=== PATIENT | male | born 1955 | race African-American/Black ===

== ENCOUNTER 2016-06-06 19:51 | Observation (INO) | payer OTHER ==
[~2016-06-06] VITALS: Ht 185.4 cm; Wt 103.4 kg
[2016-06-06] MEDS ORDERED: ASPIRIN 81 MG TAB.CHEW PO ONE (20:15)
[2016-06-06] MEDS ORDERED: MORPHINE SULFATE 2 MG/ML DISP.SYRIN. IV PRN ×2 (20:15→23:00)
[2016-06-06 20:36] LABS: BASO % 1 % (0-3); EOS % 1 % (0-3); HEMATOCRIT 41.2 % (39.0-53.0); HEMOGLOBIN 13.3 g/dL (13.0-17.5); LYMPH # 1.7 x10^3/uL (1.0-4.8); LYMPH % 22 % (24-48); MEAN CORPUSCULAR HEMOGLOBIN 30 pg (25-35); MEAN CORPUSCULAR HGB CONC 32 g/dL (31-37); MEAN CORPUSCULAR VOLUME 92 fL (79-100); MONO % 8 % (0-9); NEUT % 69 % (31-73); PLATELET COUNT 190 x10^3/uL (140-400); RED BLOOD COUNT 4.46 x10^6/uL (4.30-5.70); RED CELL DISTRIBUTION WIDTH 14.9 % (11.5-14.5); WHITE BLOOD COUNT 7.7 x10^3/uL (4.0-11.0)
[2016-06-06 20:48] LABS: CALCIUM 9.1 mg/dL (8.5-10.1); CREATININE 1.6 mg/dL (0.7-1.3); GFR 44.2; POTASSIUM 3.6 mmol/L (3.5-5.1)
[2016-06-06 20:54] LABS: ALBUMIN 3.6 g/dL (3.4-5.0); DIRECT BILIRUBIN 0.1 mg/dL (0.0-0.2); TOTAL BILIRUBIN 0.5 mg/dL (0.2-1.0); TOTAL PROTEIN 7.5 g/dL (6.4-8.2)
[2016-06-06] MEDS: NITROGLYCERIN SUBLINGUAL 0.4 MG BOTTLE OF 25. SL PRN ×3 (21:03→21:45)
--- NOTE | 2016-06-06 22:51 | PHYS DOC ---
Past Medical History Past Medical History: Cancer, Hypertension Additional Past Medical Histor: BLOOD CLOTS Past Surgical History: Cancer Surgery Additional Past Surgical Histo: CANCER OF KIDNEY, THYROID, EYE SURGERYS Alcohol Use: None Drug Use: None Adult General Chief Complaint Chief Complaint: CHEST PAIN HPI HPI 61-year-old male presenting the emergency department with chest tightness and left arm and neck pain. This started approximately 4 days ago. He denies nausea vomiting. He did have diaphoresis. He shortness of breath is also present which is worse with laying down. He denies unilateral leg swelling. He does have a history of DVT. He denies the pain being sudden. He denies hemoptysis. He is currently on warfarin. Onset 4 days Location lungs and heart Duration intermittent No alleviating factors. Review of Systems Review of Systems ROS negative for nausea vomiting abdominal pain fevers chills. pos for chest pain and shortness of breath. All other review of systems is negative unless otherwise noted in history of present illness. Current Medications Current Medications Current Medications Medications (Trade) Dose Ordered Sig/Viktoria Start Time Stop Time Status Last Admin Dose Admin Aspirin (Children'S Aspirin) 324 mg 1X ONCE 06/06/16 20:15 06/06/16 20:54 DC 06/06/16 21:02 324 MG Morphine Sulfate 2 mg PRN Q2HR PRN 06/06/16 23:00 06/07/16 22:59 Nitroglycerin (Nitrostat) 0.4 mg PRN Q5MIN PRN 06/06/16 23:00 06/07/16 22:59 Ondansetron HCl (Zofran) 4 mg PRN Q8HRS PRN 06/06/16 23:00 06/07/16 22:59 Allergies Allergies Allergies Coded Allergies Type Severity Reaction Last Updated Verified amitriptyline Allergy Intermediate 06/06/16 Yes gabapentin Allergy Intermediate 06/06/16 Yes hydrochlorothiazide Allergy Intermediate 06/06/16 Yes tramadol Allergy Intermediate 06/06/16 Yes Physical Exam Physical Exam Constitutional: Well developed, well nourished, no acute distress, non-toxic appearance. HENT: Normocephalic, atraumatic, bilateral external ears normal, oropharynx moist, no oral exudates, nose normal. Eyes: PERRLA, EOMI, conjunctiva normal, no discharge. [] Neck: Normal range of motion, no tenderness, supple, no stridor. Cardiovascular:Heart rate regular rhythm, no murmur [] Lungs & Thorax: Bilateral breath sounds clear to auscultation Abdomen: Bowel sounds normal, soft, no tenderness, no masses, no pulsatile masses. [] Skin: Warm, dry, no erythema, no rash. Back: No tenderness, no CVA tenderness. [] Extremities: No tenderness, no cyanosis, no clubbing, ROM intact, no edema. [] Neurologic: Alert and oriented X 3, normal motor function, normal sensory function, no focal deficits noted. Psychologic: Affect normal, judgement normal, mood normal. [] Current Patient Data Vital Signs Vital Signs Date Time Temp Pulse Resp B/P Pulse Ox O2 Delivery O2 Flow Rate FiO2 06/06/16 21:45 84 135/62 06/06/16 21:30 19 98 Room Air 06/06/16 19:58 98.6 98.6 Lab Values Laboratory Tests Test 06/06/16 20:20 06/06/16 20:27 White Blood Count 7.7x10^3/uL (4.0-11.0) Red Blood Count 4.46x10^6/uL (4.30-5.70) Hemoglobin 13.3g/dL (13.0-17.5) Hematocrit 41.2% (39.0-53.0) Mean Corpuscular Volume 92fL (79-100) Mean Corpuscular Hemoglobin 30pg (25-35) Mean Corpuscular Hemoglobin Concent 32g/dL (31-37) Red Cell Distribution Width 14.9% (11.5-14.5) H Platelet Count 190x10^3/uL (140-400) Neutrophils (%) (Auto) 69% (31-73) Lymphocytes (%) (Auto) 22% (24-48) L Monocytes (%) (Auto) 8% (0-9) Eosinophils (%) (Auto) 1% (0-3) Basophils (%) (Auto) 1% (0-3) Neutrophils # (Auto) 5.3x10^3uL (1.8-7.7) Lymphocytes # (Auto) 1.7x10^3/uL (1.0-4.8) Monocytes # (Auto) 0.6x10^3/uL (0.0-1.1) Eosinophils # (Auto) 0.1x10^3/uL (0.0-0.7) Basophils # (Auto) 0.0x10^3/uL (0.0-0.2) Prothrombin Time 28.1SEC (11.7-14.0) H Prothrombin Time INR 2.8 (0.8-1.1) H PTT 40SEC (24-38) H Sodium Level 144mmol/L (136-145) Potassium Level 3.6mmol/L (3.5-5.1) Chloride Level 108mmol/L (98-107) H Carbon Dioxide Level 28mmol/L (21-32) Anion Gap 8 (6-14) Blood Urea Nitrogen 16mg/dL (8-26) Creatinine 1.6mg/dL (0.7-1.3) H Estimated GFR (Cockcroft-Gault) 44.2 Glucose Level 89mg/dL (70-99) Calcium Level 9.1mg/dL (8.5-10.1) Total Bilirubin 0.5mg/dL (0.2-1.0) Direct Bilirubin 0.1mg/dL (0.0-0.2) Aspartate Amino Transferase (AST) 33U/L (15-37) Alanine Aminotransferase (ALT) 64U/L (16-63) H Alkaline Phosphatase 79U/L (46-116) Troponin I Quantitative < 0.017ng/mL (0.000-0.055) MF-Fie-N-Type Natriuretic Peptide 254pg/mL (0-124) H Total Protein 7.5g/dL (6.4-8.2) Albumin 3.6g/dL (3.4-5.0) Lipase 228U/L (73-393) POC Troponin I 0.00ng/ml (<0.08) Laboratory Tests 06/06/16 20:20 Laboratory Tests 06/06/16 20:20 EKG EKG [] 2 EKGs performed. EKG at 2002 shows sinus rhythm with a regular rate. [place] normal. Intervals normal. There is less than [address] elevation with ST segments concavity upwards. No reciprocal depression present. Repeat EKG performed at 2038 shows no acute evolving changes. Radiology/Procedures Radiology/Procedures [] No acute or obvious infiltrate or pneumothorax. Course & Med Decision Making Course & Med Decision Making Pertinent Labs and Imaging studies reviewed. (See chart for details) 61-year-old male presenting to the emergency department today with chest pain and tightness. Vital signs were unremarkable. Physical exam was unremarkable. EKG showed subtle diffuse ST elevation less than 1 mm. Does not meet STEMI criteria. ST segments not consistent with STEMI. Repeat EKG showed no acute evolving changes. The patient's pain improved with nitroglycerin in the emergency department. He was chest pain-free on reevaluation. Blood work obtained which showed normal CBC mild elevation in creatinine mild elevation in proBNP within negative troponin initially. Patient was given aspirin and admitted to our hospital for further evaluation workup and care. Cardiology consult placed. CT angiography was ordered to evaluate for pulmonary embolism however the patient only has one kidney and fairly poor kidney function. We will defer this for VQ scan in the morning. Dragon Disclaimer Dragon Disclaimer This electronic medical record was generated, in whole or in part, using a voice recognition dictation system. Departure Departure Impression: Primary Impression: Chest pain Disposition: ADMITTED INPATIENT Admitting Physician: Segundo Rivera Condition: STABLE Referrals: UNKNOWN PCP NAME (PCP) INDIO COBB MD Jun 06, 2016 22:51
[2016-06-06] MEDS ORDERED: NITROGLYCERIN SUBLINGUAL 0.4 MG BOTTLE OF 25. SL PRN (23:00)
[2016-06-06] MEDS ORDERED: ONDANSETRON PF 4 MG/2 ML VIAL. IV PRN (23:00)
--- NOTE | 2016-06-06 23:13 | ACF ---
Admission Forms Criteria CHEST PAIN Clinical Indications for Admission to Inpatient Care (Place 'X' for any and all applicable criteria): Admission is indicated for chest pain and ANY ONE of the following(1)(2)(3)(4)(5 ): [ ]I. Angina with acute coronary syndrome (Also use Myocardial Infarction or Angina guideline) [ ]II. Hemodynamic instability [ ]III. Angina needing acute intervention as indicated by ALL of the following( 11)(12): [ ]a) Unstable angina is present as indicated by angina that is ANY ONE of the following: [ ]i) New onset [ ]ii) Nocturnal [ ]iii) Prolonged at rest [ ]iv) Progressive [ ]b) Angina warrants acute intervention as indicated by ANY ONE of the following: [ ]i) Recurrent angina (e.g, not responding as previously to treatment) [ ]ii) Angina at rest or with low-level activities despite initial medical therapy [ ]iii) New or presumably new ST-segment depression on ECG [ ]iv) Signs or symptoms of heart failure (eg, dyspnea, pulmonary edema) [ ]v) New or worsening mitral regurgitation [ ]vi) Hemodynamic instability [ ]vii) Dangerous arrhythmia (eg, sustained ventricular tachycardia) [ ]viii) History of percutaneous coronary intervention within 6 months [ ]ix) History of coronary artery bypass graft surgery [ ]x) HUSSEIN risk score of 2 or greater[A] [ ]xi) History of Diabetes(14) [ ]xii) High-risk cardiac ischemia findings on noninvasive testing (e.g, echocardiogram, treadmill testing, nuclear scan) [ ]xiii) Chronic renal insufficiency (ie, estimated GFR less than 60 mL/min/1.732m) [ ]xiv) Left ventricular ejection fraction less than 40% [ ]IV. Evidence of VT (eg, cardiac biomarkers positive, ST-segment elevation on ECG) also use Myocardial Infarction Criteria Form. [ ]V. Pulmonary edema [ ]. Respiratory distress [ ]VII. Chest pain indicative of serious diagnosis other than coronary artery disease (eg, aortic dissection) [ ]VIII. Contraindications and/or Inappropriate clinical situations for Observational Care in patients with Chest Pain, when ANY ONE of the following is required: [ ]a) Patient with risk factor for pulmonary embolism, acute coronary syndrome and myocardial infarction (18) [ ]b) Patient with Pulmonary embolism require an average LOS of 4.3 days, therefore emergency department observation management is inappropriate 18,23 [ ]c) Painful condition/s in the elderly, have the highest rate of recidivism after emergency department observation management (10.8%) 20,21,22 [ ]d) Elevated cardiac biomarker requires intensive and exhaustive care (19) [ ]IX. General contraindications and/or Inappropriate clinical situations for Observational Care in patients with Chest Pain, when ANY ONE of the following is required: [ ]a) Prediction of prolongation of LOS based on ANY ONE of the following may be considered as a contraindication for observational care 2, 3, 4, 5, 6, 7, 8, 9, 10, 11 [ ]i) Age > 65 yrs. [ ]ii) Patient arriving by ambulance [ ]iii) Patient with high acuity [ ]iv) Patient requiring vital sign monitoring [ ]v) Patient on IV medication [ ]b) Systolic blood pressures 180mmHg 3,12 [ ]c) Patient with altered mental status including delirium and other alteration of consciousness, (3) [ ]d) Patient whose discharge disposition will be to a [facility] home or rehabilitation home should not be managed in Emergency Department Observation Unit. CMS rule requires 3 days hospital stay before such placement. 3,13 [ ]e) Patient with failure to thrive due to broad array of etiologies 3,16,17 [ ]f) Inability to ambulate 3,14 Extended stay beyond goal length of stay may be needed for (1)(28): [ ]a) Specific condition diagnosed after evaluation (eg, pulmonary embolism, aortic dissection) [ ]b) Unstable angina [ ]c) Continued suspicion of acute coronary syndrome with inability to complete needed cardiac evaluation (eg, patient clinically unable to undergo stress testing) [ ]d) Myocardial infarction (Contents from ANGINA and CHEST PAIN clinical indications for admission to inpatient care have been integrated in this form) The original [employer] content created by [employer] has been revised. The portions of the content which have been revised are identified through the use of italic text or in bold, and [employer] has neither reviewed nor approved the modified material. All other unmodified content is copyright [employer]. Please see references footnoted in the original [employer] edition 2016 HARRISON COURTNEY Jun 06, 2016 23:13
[2016-06-06 23:21] LABS: INR 2.8 (0.8-1.1); PROTHROMBIN TIME PATIENT 28.1 SEC (11.7-14.0)
[2016-06-06] MEDS ORDERED: CONTRAST GIVEN MC PRN (23:30)
[2016-06-06] MEDS ORDERED: IOHEXOL 300 MG/ML 100ML VIAL. IV ONE (23:30)
[2016-06-07 00:48] VITALS: BP 114/76
--- NOTE | 2016-06-07 01:54 | ACF ---
Admission Forms Criteria CARDIOLOGY GRG Clinical Indications for Admission to Inpatient Care ( Place 'X' for any and all applicable criteria): Hospital admission is needed for appropriate care of the patient because of ANY ONE of the following (1): [ ] I. Hemodynamic instability as indicated by ALL of the following (1)(2)(3) (4)(5) [ ]a) Vital signs or other findings not as expected for chronic patient condition or baseline [ ]b) Instability indicated by ANY ONE of the following: [ ]i) Hypotension [ ]ii) Symptomatic Tachycardia unresponsive to treatment ( e.g., analgesia, fluids, sedation as indicated) [ ]iii) Inadequate perfusion indicated by ANY ONE of the following: [ ] 1) Lactic acidosis (> 2 mmol/L) [ ] 2) New abnormal capillary refill (> 3 seconds) [ ] 3) Reduced urine output [ ] 4) New altered mental status [ ]iv) Orthostatic vital sign changes unresponsive to treatment (e.g., fluids) [ ]v) IV inotropic or vasopressor medication required to maintain adequate blood pressure or perfusion [ ] II. Severe heart failure as indicated by ANY ONE of the following(17)(18) [ ]a) Respiratory distress [ ]b) Hypotension [ ]c) Anasarca (refractory to outpatient therapy) [ ]d) Cardiac arrhythmias of immediate concern [ ]e) Myocardial ischemia [ ] III. Cardiac arrhythmias or findings of immediate concern indicated by ANY ONE of the following (19)(20): [ ] a) Heart rhythms that are inherently dangerous or unstable indicated by ANY ONE of the following (21)(22)(23): [ ] i) Resuscitated ventricular fibrillation or cardiac arrest [ ] ii) Ventricular escape rhythm [ ] iii) Sustained ventricular tachycardia (30 seconds or more of ventricular rhythm at greater than 100 beats per minute) [ ] iv) Nonsustained ventricular tachycardia and ANY ONE of the following: [ ] 1) Suspected cardiac ischemia as cause or consequence of ventricular tachycardia [ ] 2) In setting of acute myocarditis [ ] b) Unstable cardiac conduction defects indicated by ANY ONE of the following(23)(24)(25) [ ] i) Type II second-degree atrioventricular block [ ]ii) Third-degree atrioventricular block [ ]iii) New-onset left bundle branch block with suspected myocardial ischemia [ ]c) Any heart rhythm and ANY ONE of the following (21)(22)(26)(27) (28) [ ] i) Continuous long-term ECG monitoring needed (e.g., initiation of drug requiring monitoring for more than 24 hours) [ ] ii) Patient has automatic implanted cardioverter defibrillator that is repeatedly firing, malfunctioning, or in need of immediate adjustment of settings beyond the scope of ambulatory or observation care [ ]d) Heart rhythms of concern due to ANY ONE of the following: [ ] i) Hypotension [ ] ii) Respiratory distress [ ] iii) Association with other significant symptoms (e.g., bradycardia with syncope or ongoing dizziness, supraventricular tachycardia with chest pain (14)(15)(17) [ ] IV. Monitoring for cardiac contusion beyond the scope of observation care needed [A](30)(31)(32) [ ] V. Surgical or device complication (e.g., valve replacement complication , pacemaker dysfunction) (35)(41)(44)(45)(46) [ ] . Inpatient palliative care needed. [B](49) Also use Inpatient Palliative Care Criteria [ ] VII. Nonbacterial thrombotic (marantic) endocarditis (36)(43)(47)(48) [X] VIII. Cardiology condition, symptom, or finding for which emergency and observation care has failed or are not considered appropriate. [ ] IX. Acute valvular disease requiring inpatient as indicated by ANY ONE of the following (41) [ ]a) Acute valvular regurgitation (42) [ ]b) Noninfectious valvulitis (43) [ ]c) Obstructive valve thrombosis [ ]d) Paravalvular leak [ ]e) Other significant valvular disorder remaining after emergency or observation level of care (as appropriate) [ ]X. Pericardial disease requiring inpatient treatment as indicated by ANY ONE of the following (33)(34)(35)(36)(37) [ ]a) Suspected tamponade (38)(39)(40) [ ]b) Hemopericardium [ ]c) Other significant pericardial disorder remaining after emergency or observation level of care (as appropriate) [ ] XI. Cardiac ischemia beyond scope of emergency and observation care. [ ] XII. Hypertension requiring inpatient treatment as indicated by ANY ONE of the following (6)(7)(8) [ ]a) SBP greater than 220 mm Hg or DBP greater than 120 mmHg despite treatment [ ]b) SBP greater than 140 mm Hg or DBP greater than 100 mm Hg with evidence of acute end organ damage as indicated by ANY ONE of the following [ ] i) Encephalopathy [ ] ii) Acute renal failure as indicated by new onset of ANY ONE of the following (9)(10)(11)(12)(13) [ ]1) 3-fold rise in serum creatinine from baseline [ ]2) Serum creatinine greater than 4 mg/dL ( 354 micromoles/L) with acute rise greater than 0.5 mg/dL (44.2 micromoles/L) [ ]3) Reduction of more than 75% in estimated glomerular filtration rate from baseline [ ]4) Estimated glomerular filtration rate less than 35 mL/min/1.73m2 (0.59 mL/sec/1.73m2) in child up to 18 years of age [ ]5) Cessation of urine output indicated by ALL of the following [ ]A. Adequate volume status [ ]B. Inadequate urine output as indicated by ANY ONE of the following [ ]a. Urine output less than 0.3 mL/kg/hr for 24 hours [ ]b. Anuria (urine output less than 0.1 mL/kg/hr) for 12 hours [ ] iii) Aortic dissection [ ] iv) Myocardial Ischemia [ ] v) Left ventricular heart failure [ ]vi) Retinal Hemorrhage [ ]vii) Other significant finding [ ]c) Hypertension in child requiring inpatient treatment as indicated by ALL of the following(14)(15)(16) [ ] i) Outpatient treatment not effective, not available, or not appropriate [ ]ii) SBP or DBP greater than 95th percentile for age [ ]iii) Evidence of acute end organ damage as indicated by ANY ONE of the following [ ]1) Altered mental status [ ]2) Acute renal failure as indicated by new onset of ANY ONE of the following(9)(10)(11)(12)(13) [ ]A. 3-fold rise in serum creatinine from baseline [ ]B. Serum creatinine greater than 4 mg/dL (354 micromoles/L) with acute rise greater than 0.5 mg/dL (44.2 micromoles/L) [ ]C. Reduction of more than 75% in estimated glomerular filtration rate from baseline [ ]D. Estimated glomerular filtration rate less than 35 mL/min/1.73m2 (0.59 mL/sec/1.73m2) in child up to 18 years of age [ ]E. Cessation of urine output indicated by ALL of the following [ ]a. Adequate volume status [ ]b. Inadequate urine output as indicated by ANY ONE of the following [ ]i) Urine output less than 0.3 mL/kg/hr for 24 hours [ ]ii) Anuria ( urine output less than 0.1 mL/kg/hr) for 12 hours [ ]3) Severe headache [ ]4) Visual disturbance [ ]5) Retinal hemorrhage [ ]6) Other significant finding [ ]XIII. Complications of transplanted heart indicated by ANY ONE of the following(61): [ ]a) Acute graft rejection requiring inpatient management (eg, intravenous immunosuppression)(62)(63) [ ]b) Acute graft heart failure indicated by ANY ONE of the following(64): [ ]i) Hemodynamic instability [ ]ii) Cardiac arrhythmias of immediate concern [ ]iii) Pulmonary edema that is very severe (eg, mechanical ventilation needed, imminent or likely, need for 100% oxygen to keep oxygen saturation above 90%) [ ]iv) Pulmonary edema that is persistent as indicated by ALL of the following: [ ]1) New need for oxygen therapy to keep oxygen saturation above 90% (or increased FiO2 need from baseline) [ ]2) Has not improved sufficiently with emergency department or observation care IV diuretics or other heart failure treatments[E] [ ]v) Altered mental status that is severe or persistent [ ]vi) Increased creatinine (new on laboratory test) with reduction of more than 50% in estimated glomerular filtration rate from baseline [ ]vii) Progressively (ongoing) rising creatinine (known from past laboratory test) with reduction of more than 25% in estimated glomerular filtration rate from baseline [ ]viii) Acute renal failure [ ]ix) Acute peripheral ischemia (eg, examination shows pulseless, cool, mottled, or cyanotic extremity) [ ]x) Pulmonary artery catheter monitoring needed [ ]xi) Other sign or symptom of heart failure requiring inpatient treatment (ie, too severe or not responsive to outpatient and observation care treatment) [ ]c) Infection requiring inpatient management (eg, Hemodynamic instability, need for intravenous antimicrobial treatment)(66)(67)(68)(69)(70) [ ]d) Cardiac allograft vasculopathy requiring inpatient management ( eg evidence of cardiac ischemia)(71) [ ]e) Other complication of transplanted heart (eg, stroke, severe pulmonary hypertension, severe valvular dysfunction) requiring inpatient management(72) The original [facility] content created by [facility] has been revised. The portions of the content which have been revised are identified through the use of italic text or in bold, and [facility] has neither reviewed nor approved the modified material. All other unmodified content is copyright [facility]. Please see references footnoted in the original [facility] edition 2016 Admission Criteria Met?: Yes HARRISON COURTNEY Jun 07, 2016 01:54
[2016-06-07 03:00] VITALS: BP 132/73
[2016-06-07 06:11] LABS: CALCIUM 8.3 mg/dL (8.5-10.1); CREATININE 1.5 mg/dL (0.7-1.3); GFR 57.6
--- NOTE | 2016-06-07 06:12 | EKG ---
[facility] [address] [place] [address] Test Date: 2016-06-06 Test Time: 20:03:38 Pat Name: MAI MARK Department: Room: 524 1 Gender: M In Tube Conversion Technician: : 1955 Requested By: INDIO COBB Order Number: [id number] Reading MD: Iker Reaves Measurements Intervals [place] Rate: 83 P: 43 HI: 202 QRS: 23 QRSD: 90 T: 30 QT: 358 QTc: 421 Interpretive Statements SINUS RHYTHM Electronically Signed On 06-08-2016 15:29:31 TAPE EDGE MACHINE OPERATOR by Iker Reaves
[2016-06-07 06:27] LABS: BASO # 0.1 x10^3/uL (0.0-0.2); BASO % 1 % (0-3); EOS % 2 % (0-3); HEMATOCRIT 37.6 % (39.0-53.0); HEMOGLOBIN 12.4 g/dL (13.0-17.5); LYMPH # 2.2 x10^3/uL (1.0-4.8); LYMPH % 34 % (24-48); MEAN CORPUSCULAR HEMOGLOBIN 30 pg (25-35); MEAN CORPUSCULAR HGB CONC 33 g/dL (31-37); MEAN CORPUSCULAR VOLUME 91 fL (79-100); MONO % 8 % (0-9); NEUT % 54 % (31-73); PLATELET COUNT 167 x10^3/uL (140-400); RED BLOOD COUNT 4.14 x10^6/uL (4.30-5.70); RED CELL DISTRIBUTION WIDTH 14.5 % (11.5-14.5); WHITE BLOOD COUNT 6.6 x10^3/uL (4.0-11.0)
[2016-06-07 07:00] VITALS: BP 119/79
[2016-06-07] MEDS ORDERED: DOXY50CA PO (07:28)
[2016-06-07] MEDS ORDERED: IPRA4AER IH (07:28)
[2016-06-07] MEDS ORDERED: BRIM5DRO3 EACHEYE (07:28)
[2016-06-07] MEDS ORDERED: FINA5TAB4 PO (07:28)
[2016-06-07] MEDS ORDERED: LATA2.5D2 OP (07:28)
[2016-06-07] MEDS ORDERED: DORZ10DR7 EACHEYE (07:28)
[2016-06-07] MEDS ORDERED: TAMS0.4C2 PO (07:28)
[2016-06-07] MEDS ORDERED: LISI10TA2 PO (07:28)
[2016-06-07] MEDS ORDERED: CALC500T27 PO (07:28)
[2016-06-07] MEDS ORDERED: [UNRECOGNIZED DRUG - CODE] PO (07:28)
[2016-06-07] MEDS ORDERED: OMEP20CA9 PO (07:28)
[2016-06-07] MEDS ORDERED: CHOL100013 PO (07:28)
[2016-06-07] MEDS ORDERED: WARF5TAB7 PO ×2 (07:28)
[2016-06-07] MEDS ORDERED: KETO15CR TP (07:28)
[2016-06-07] MEDS ORDERED: LEVO125T PO (07:28)
[2016-06-07] MEDS ORDERED: ONDANSETRON PF 4 MG/2 ML VIAL. IV PRN (07:59)
[2016-06-07] MEDS ORDERED: ACETAMINOPHEN 325 MG TABLET. PO PRN (08:00)
--- NOTE | 2016-06-07 08:21 | RAD ---
EXAM: Chest, single view. HISTORY: Chest pain. COMPARISON: None. FINDINGS: A frontal view of the chest is obtained. There is no infiltrate, effusion or pneumothorax. The heart is normal in size. IMPRESSION: No acute pulmonary finding.
[2016-06-07] MEDS ORDERED: DORZOLAMIDE/TIMOLOL 2%/0.5% OPHTH SOLUTION 10ML BOTTLE. OU SCH (09:00)
[2016-06-07] MEDS ORDERED: NON FORMULARY ITEM (Ipratropium/Albuterol Sulfate (Combivent Respimat Inhal) 2 INH) IH SCH (09:00)
[2016-06-07] MEDS ORDERED: CALCIUM CARBONATE 500 MG TABLET PO SCH (09:00)
[2016-06-07] MEDS ORDERED: MULTIVITAMIN with MINERAL TABLET. PO SCH (09:00)
[2016-06-07] MEDS ORDERED: CHOLECALCIFEROL (VITAMIN D3) 1,000 UNIT TABLET PO SCH (09:00)
[2016-06-07] MEDS ORDERED: PANTOPRAZOLE 40 MG TABLET. PO SCH (09:00)
[2016-06-07] MEDS ORDERED: LISINOPRIL 10 MG TABLET PO SCH (09:00)
[2016-06-07] MEDS ORDERED: INFLUENZA VAX SCREEN BY RX. MC ONE (09:00)
[2016-06-07] MEDS ORDERED: BRIMONIDINE 0.2% OPHTH SOLUTION 5ML BOTTLE. OU SCH (09:00)
[2016-06-07] MEDS ORDERED: KETOCONAZOLE 2% TOPICAL CREAM 15GM TUBE. TP SCH (09:00)
[2016-06-07] MEDS ORDERED: FLU VACC QUAD 2016-17 (36MOS+)/PF 0.5 ML SYRINGE. VAX IM ONE (09:00)
[2016-06-07] MEDS ORDERED: FINASTERIDE 5 MG TABLET PO SCH (09:00)
[2016-06-07] MEDS ORDERED: LEVOTHYROXINE 125 MCG TABLET PO SCH (09:00)
--- NOTE | 2016-06-07 09:51 | PDOC2 ---
AIDA ROCHE BARREL PLATER 06/07/16 0951: CARDIAC CONSULT DATE OF CONSULT Date of Consult DATE: 06/07/16 TIME: 09:45 REASON FOR CONSULT Reason for Consult: Chest pain REFERRING PHYSICIAN Referring Physician: Britni SOURCE Source: Chart review, Patient HISTORY OF PRESENT ILLNESS HISTORY OF PRESENT ILLNESS This is a 61 yo male admitted for complains of chest pressure. Reports left chest pressure radiating to left shoulder neck and left arm. This is not reproducible with palpation. This has been intermittent in the last 4 days. He did mention diaphoresis in ED but denied it for me. Also mentioned SOA while supine but denied it for me. Denies any nausea, vomiting, palpitations, SOA, nor diaphoresis. No decreased activity tolerance. Reports 67 falls in the last 6 months blaming it on loss of balance no dizziness. No previous hx of losing consciousness, Usually goes to [facility]. Denies any CAD, nausea, vomiting, diarrhea, fever, chills, seizures. Positive for bilateral DVT on 2 separate occasion resulting to chronic anticoagulation but no prior PE. 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) Renal/: Benign prostatic enlarg., Other (erectile dysfunction) Endocrine: Hypothyroidism (acquired) Dermatology: No pertinent hx PAST SURGICAL HISTORY Past Surgical History: Arthroscopy (right foot repair), Tonsillectomy, Other ( thyroidectomy; right renal resection) FAMILY HISTORY Family History noncontributory SOCIAL HISTORY Smoke: No (quit 33 pk yr) ALCOHOL: none Drugs: None Lives: with Family CURRENT MEDICATIONS CURRENT MEDICATIONS Current Medications Medications (Trade) Dose Ordered Sig/Viktoria Route PRN Reason Start Time Stop Time Status Last Admin Dose Admin Aspirin (Children'S Aspirin) 324 mg 1X ONCE PO 06/06/16 20:15 06/06/16 20:54 DC 06/06/16 21:02 Nitroglycerin (Nitrostat) 0.4 mg PRN Q5MIN PRN SL CHEST PAIN 06/06/16 20:15 06/06/16 22:51 DC 06/06/16 21:45 Morphine Sulfate 2 mg PRN Q1HR PRN IV SEVERE PAIN 06/06/16 20:15 06/07/16 20:14 06/06/16 21:04 Nitroglycerin (Nitrostat) 0.4 mg PRN Q5MIN PRN SL CHEST PAIN 06/06/16 23:00 06/07/16 22:59 06/07/16 07:51 Dorzolamide/ Timolol (Cosopt) 1 drop BID OU 06/07/16 09:00 06/07/16 08:42 Ketoconazole (Nizoral 2% Topical) 1 justin BID TP 06/07/16 09:00 06/07/16 08:40 Levothyroxine Sodium (Synthroid) 125 mcg DAILY07 PO 06/07/16 09:00 06/07/16 08:40 Brimonidine Tartrate (Alphagan) 1 drop BID OU 06/07/16 09:00 06/07/16 08:41 Pantoprazole Sodium (Protonix) 40 mg DAILYAC PO 06/07/16 09:00 06/07/16 08:40 ALLERGIES ALLERGIES: Coded Allergies: amitriptyline (Verified Allergy, Intermediate, 06/06/16) gabapentin (Verified Allergy, Intermediate, 06/06/16) hydrochlorothiazide (Verified Allergy, Intermediate, 06/06/16) tramadol (Verified Allergy, Intermediate, 06/06/16) ROS Review of System 14 point ROS evaluated with pertinent positives noted per HPI PHYSICAL EXAM General: Alert, Oriented X3, Cooperative, No acute distress HEENT: Atraumatic, Mucous membr. moist/pink, Other (blind right eye) Lungs: Clear to auscultation, Normal air movement Heart: Regular rate, Normal S1, Normal S2, Other (2/6 systolic murmur to LLS border) Abdomen: Soft, No tenderness Extremities: No cyanosis, No edema Skin: No breakdown, No significant lesion Neuro: Normal speech, Sensation intact Psych/Mental Status: Mental status NL, Mood NL MUSCULOSKELETAL: Osteoarthritic changes both hands VITALS VITALS Vital Signs Date Time Temp Pulse Resp B/P Pulse Ox O2 Delivery O2 Flow Rate FiO2 06/07/16 08:00 Room Air 06/07/16 07:51 19 119/79 06/07/16 07:00 98.2 19 97 98.2 LABS Lab: Laboratory Tests Test 06/06/16 20:20 06/06/16 20:27 06/07/16 04:55 White Blood Count 7.7x10^3/uL (4.0-11.0) 6.6x10^3/uL (4.0-11.0) Red Blood Count 4.46x10^6/uL (4.30-5.70) 4.14x10^6/uL (4.30-5.70) Hemoglobin 13.3g/dL (13.0-17.5) 12.4g/dL (13.0-17.5) Hematocrit 41.2% (39.0-53.0) 37.6% (39.0-53.0) Mean Corpuscular Volume 92fL (79-100) 91fL (79-100) Mean Corpuscular Hemoglobin 30pg (25-35) 30pg (25-35) Mean Corpuscular Hemoglobin Concent 32g/dL (31-37) 33g/dL (31-37) Red Cell Distribution Width 14.9% (11.5-14.5) 14.5% (11.5-14.5) Platelet Count 190x10^3/uL (140-400) 167x10^3/uL (140-400) Neutrophils (%) (Auto) 69% (31-73) 54% (31-73) Lymphocytes (%) (Auto) 22% (24-48) 34% (24-48) Monocytes (%) (Auto) 8% (0-9) 8% (0-9) Eosinophils (%) (Auto) 1% (0-3) 2% (0-3) Basophils (%) (Auto) 1% (0-3) 1% (0-3) Neutrophils # (Auto) 5.3x10^3uL (1.8-7.7) 3.6x10^3uL (1.8-7.7) Lymphocytes # (Auto) 1.7x10^3/uL (1.0-4.8) 2.2x10^3/uL (1.0-4.8) Monocytes # (Auto) 0.6x10^3/uL (0.0-1.1) 0.6x10^3/uL (0.0-1.1) Eosinophils # (Auto) 0.1x10^3/uL (0.0-0.7) 0.1x10^3/uL (0.0-0.7) Basophils # (Auto) 0.0x10^3/uL (0.0-0.2) 0.1x10^3/uL (0.0-0.2) Prothrombin Time 28.1SEC (11.7-14.0) Prothromb Time International Ratio 2.8 (0.8-1.1) Activated Partial Thromboplast Time 40SEC (24-38) Sodium Level 144mmol/L (136-145) 144mmol/L (136-145) Potassium Level 3.6mmol/L (3.5-5.1) 4.0mmol/L (3.5-5.1) Chloride Level 108mmol/L (98-107) 111mmol/L (98-107) Carbon Dioxide Level 28mmol/L (21-32) 25mmol/L (21-32) Anion Gap 8 (6-14) 8 (6-14) Blood Urea Nitrogen 16mg/dL (8-26) 16mg/dL (8-26) Creatinine 1.6mg/dL (0.7-1.3) 1.5mg/dL (0.7-1.3) Estimated GFR (Cockcroft-Gault) 44.2 57.6 Glucose Level 89mg/dL (70-99) 110mg/dL (70-99) Calcium Level 9.1mg/dL (8.5-10.1) 8.3mg/dL (8.5-10.1) Total Bilirubin 0.5mg/dL (0.2-1.0) Direct Bilirubin 0.1mg/dL (0.0-0.2) Aspartate Amino Transf (AST/SGOT) 33U/L (15-37) Alanine Aminotransferase (ALT/SGPT) 64U/L (16-63) Alkaline Phosphatase 79U/L (46-116) Troponin I Quantitative < 0.017ng/mL (0.000-0.055) < 0.017ng/mL (0.000-0.055) XD-Osx-B-Type Natriuretic Peptide 254pg/mL (0-124) Total Protein 7.5g/dL (6.4-8.2) Albumin 3.6g/dL (3.4-5.0) Lipase 228U/L (73-393) Bedside Troponin I 0.00ng/ml (<0.08) ASSESSMENT/PLAN ASSESSMENT/PLAN 1. Chest pain: troponin series normal ruling out AMI. EKG SR with diffuse ST elevation, early repolarization vs pericarditis. Suspect r/t MSK with recent falls. TTE today. MPI to commence to completely rule out ischemia. Lipid panel. 2. HTN: controlled 3. Hypothyroidism: TSH. on replacement 4. Hx of DVT: notably unprovoked with 2 separate occasion, right then left LE. Initially 3 yrs ago. Chronic anticoagulation with coumadin. INR 2.8 5. CKD?: appears to be stage 3. 6. Mechanical fall: blaming it on left foot (S/P left foot surgical repair) causing loss of balance. 67 x in last 6 months not associated with presyncopal nor syncopal episodes. Likely need foot brace for stability. 7. Hx of renal and thyroid CA: with resections. Problems: ALEX BRAUN MD 06/07/16 1601: CARDIAC CONSULT ALLERGIES ALLERGIES: Coded Allergies: amitriptyline (Verified Allergy, Intermediate, 06/06/16) gabapentin (Verified Allergy, Intermediate, 06/06/16) hydrochlorothiazide (Verified Allergy, Intermediate, 06/06/16) tramadol (Verified Allergy, Intermediate, 06/06/16) ASSESSMENT/PLAN ASSESSMENT/PLAN Patient seen and examined. Agree with FIELD SPECIALIST's assessment and plan. Chest pain with atypical features. Myocardial infarction was ruled out. Check 2-D echo to assess LV function and Lexiscan nuclear stress test to rule out ischemia. Thank you for your consultation. Problems: AIDA ROCHE APRN Jun 07, 2016 09:51 ALEX BRAUN MD Jun 07, 2016 16:01
--- NOTE | 2016-06-07 10:31 | EKG ---
[facility] [address] [place] [address] Test Date: 2016-06-07 Test Time: 10:09:12 Pat Name: MAI MARK Department: Room: 524 1 Gender: M [employer] Operator: : 1955 Requested By: AIDA ROCHE Order Number: [id number] Reading MD: Iker Reaves Measurements Intervals [place] Rate: 62 P: 40 W[place]: 222 QRS: 12 QRSD: 98 T: 6 QT: 370 QTc: 378 Interpretive Statements SINUS RHYTHM PROLONGED WY INTERVAL Electronically Signed On 06-08-2016 15:34:45 INSURANCE OFFICE MANAGER by Iker Reaves
[2016-06-07] MEDS ORDERED: REGADENOSON 0.4 MG/5 ML DISP.SYRIN. IV ONE (11:00)
[2016-06-07] MEDS: IPRATRPIUM/ALBUTEROL 0.5/2.5MG 3 ML NEBU. NEB SCH ×2 (11:12→15:34)
[2016-06-07 13:38] VITALS: BP 156/84
--- NOTE | 2016-06-07 13:49 | PDOC1 ---
History and Physical Date of Admission Date of Admission DATE: 06/07/16 TIME: 13:41 Identification/Chief Complaint Chief Complaint chest pain Source Source: Caregiver, Chart review History of Present Illness History of Present Illness 61 y.o male with no known personal hx of CAD, admitted for CP, more described as pressure Detail: radiated to left shoulder and arm, no other sxs of pre syncope, soa, or diaphoresis. [facility] NO identifiable precipitating and alleviating factors. 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) Renal/: Benign prostatic enlarg., Other (erectile dysfunction) Endocrine: Hypothyroidism (acquired) Dermatology: No pertinent hx Past Surgical History Past Surgical History: Arthroscopy (right foot repair), Tonsillectomy, Other ( thyroidectomy; right renal resection) Family History Family History: No Significant Social History Smoke: No (quit 33 pk yr) ALCOHOL: none Drugs: None Current Problem List Problem List Problems Medical Problems: (1) Chest pain Status: Acute Problems: Current Medications Current Medications Current Medications Aspirin (Children'S Aspirin) 324 mg 1X ONCE PO Last administered on 06/06/16 21:02; Start 06/06/16 at 20:15; Stop 06/06/16 at 20:54; Status DC Nitroglycerin (Nitrostat) 0.4 mg PRN Q5MIN PRN SL CHEST PAIN Last administered on 06/06/16 21:45; Start 06/06/16 at 20:15; Stop 06/06/16 at 22:51; Status DC Morphine Sulfate 2 mg PRN Q1HR PRN IV SEVERE PAIN Last administered on 21:04; Start 06/06/16 at 20:15; Stop 06/07/16 at 20:14 Ondansetron HCl (Zofran) 4 mg PRN Q8HRS PRN IV NAUSEA/VOMITING; Start 06/06/16 at 23:00; Stop 06/07/16 at 08:01; Status DC Morphine Sulfate 2 mg PRN Q2HR PRN IV SEVERE PAIN; Start 06/06/16 at 23:00; Stop 06/07/16 at 22:59 Nitroglycerin (Nitrostat) 0.4 mg PRN Q5MIN PRN SL CHEST PAIN Last administered on 06/07/16 07:51; Start 06/06/16 at 23:00; Stop 06/07/16 at 22:59 Iohexol (Omnipaque 300 Mg/ml) 75 ml 1X ONCE IV ; Start 06/06/16 at 23:30; Stop 06/06/16 at 23:31; Status DC Info (Do NOT chart on this entry -- for MONITORING) 1 each PRN DAILY PRN MC SEE COMMENTS; Start 06/06/16 at 23:30; Stop 06/08/16 at 23:29 Info (Do NOT chart on this placeholder) 1 each 1X ONCE MC ; Start 06/07/16 at 09 :00; Stop 06/07/16 at 09:01; Status UNV Influenza Virus Vaccine Quadrival (Fluarix Quad 3757-9195 Syringe) 0.5 ml ONCE ONCE VAX IM ; Start 06/07/16 at 09:00; Stop 06/07/16 at 09:01; Status DC Ondansetron HCl (Zofran) 4 mg PRN Q6HRS PRN IV NAUSEA/VOMITING; Start 06/07/16 at 07:59 Acetaminophen (Tylenol) 650 mg PRN Q6HRS PRN PO MILD PAIN / TEMP; Start at 08:00 Calcium Carbonate/ Glycine (Oscal) 500 mg BID PO ; Start 06/07/16 at 09:00 Dorzolamide/ Timolol (Cosopt) 1 drop BID OU Last administered on 06/07/16 08:42 ; Start 06/07/16 at 09:00 Finasteride (Proscar) 5 mg DAILY PO ; Start 06/07/16 at 09:00 Ketoconazole (Nizoral 2% Topical) 1 meghna BID TP Last administered on 06/07/16 08 :40; Start 06/07/16 at 09:00 Latanoprost (Xalatan) 1 drop HS OU ; Start 06/07/16 at 21:00 Levothyroxine Sodium (Synthroid) 125 mcg DAILY07 PO Last administered on 08:40; Start 06/07/16 at 09:00 Lisinopril (Prinivil) 10 mg DAILY PO ; Start 06/07/16 at 09:00 Tamsulosin HCl (Flomax) 0.4 mg QHS PO ; Start 06/07/16 at 21:00 Warfarin Sodium (Coumadin) 7.5 mg QMTUTHSA PO ; Start 06/07/16 at 16:00 Warfarin Sodium (Coumadin) 10 mg QFR PO ; Start 06/11/16 at 16:00 Brimonidine Tartrate (Alphagan) 1 drop BID OU Last administered on 06/07/16 08: 41; Start 06/07/16 at 09:00 Non-Formulary Medication 2 inh QID IH ; Start 06/07/16 at 09:00; Status UNV Multivitamins/ Calcium (Thera M Plus) 1 tab DAILY PO ; Start 06/07/16 at 09:00 Pantoprazole Sodium (Protonix) 40 mg DAILYAC PO Last administered on 06/07/16 08:40; Start 06/07/16 at 09:00 Vitamin D (Vitamin D3) 1,000 unit DAILY PO ; Start 06/07/16 at 09:00 Warfarin Sodium (Coumadin) 7.5 mg QSU PO ; Start 06/13/16 at 16:00 Warfarin Sodium (Coumadin) 7.5 mg QWE PO ; Start 06/09/16 at 16:00 Warfarin Sodium (Coumadin Per Physician) 1 each PRN DAILY PRN MC SEE COMMENTS; Start 06/07/16 at 08:15 Albuterol/ Ipratropium (Duoneb) 3 ml RTQID NEB Last administered on 06/07/16 11 :12; Start 06/07/16 at 12:00 Regadenoson (Lexiscan) 0.4 mg 1X ONCE IV Last administered on 06/07/16 13:06; Start 06/07/16 at 11:00; Stop 06/07/16 at 11:01; Status DC Active Scripts Active Reported Warfarin Sodium 5 Mg Tablet 7.5 Mg PO DAILY Warfarin Sodium 5 Mg Tablet 10 Mg PO QFR Finasteride 5 Mg Tablet 5 Mg PO DAILY Combivent Respimat Inhal (Ipratropium/Albuterol Sulfate) 4 Gm Aer.w.adap 2 Inh IH QID Vitamin D (Cholecalciferol (Vitamin D3)) 1,000 Unit Capsule 1,000 Unit PO Alphagan P (Brimonidine Tartrate) 5 Ml Drops 1 Drop EACHEYE BID Xalatan (Latanoprost) 2.5 Ml Drops 1 Drop OP HS Lisinopril 10 Mg Tablet 10 Mg PO DAILY Doxycycline Hyclate 50 Mg Capsule 50 Mg PO DAILY Omeprazole 20 Mg Capsule.dr 20 Mg PO DAILYAC Therapeutic M (Multivit With Calcium,Iron,Min) 1 Each Tablet 1 Each PO DAILY Synthroid (Levothyroxine Sodium) 125 Mcg Tablet 125 Mcg PO DAILYAC Calcium (Calcium Carbonate) 500 Mg Tablet 500 Mg PO BID Ketoconazole 15 Gm Cream..g. 1 Meghna TP BID Dorzolamide-Timolol Eye Drops (Dorzolamide Hcl/Timolol Maleat) 10 Ml Drops 1 Drop EACHEYE BID Tamsulosin Hcl 0.4 Mg Cap.er.24h 1 Cap PO QHS Allergies Allergies: Coded Allergies: amitriptyline (Verified Allergy, Intermediate, 06/06/16) gabapentin (Verified Allergy, Intermediate, 06/06/16) hydrochlorothiazide (Verified Allergy, Intermediate, 06/06/16) tramadol (Verified Allergy, Intermediate, 06/06/16) ROS Review of System all 14pt reviewed, all else is neg Physical Exam General: Alert, Oriented X3, Cooperative, No acute distress HEENT: PERRLA Lungs: Clear to auscultation Heart: S1S2, RRR, no thrills, no rubs Cardiovascular: S1, S2 Breasts: Normal Abdomen: Normal bowel sounds, Soft Male Genitals Exam: normal genitalia, normal prostate Rectal Exam: not examined, mass PELVIC: Nml ext genitalia Extremities: No clubbing, No cyanosis, No edema, Normal pulses, No tenderness/ swelling Skin: No rashes, No breakdown, No significant lesion Neuro: Normal gait, Normal speech, Strength at 5/5 X4 ext, Normal tone, Sensation intact, Cranial nerves 3-12 NL, Reflexes 2+ Psych/Mental Status: Mental status NL, Mood NL Vitals Vitals Vital Signs Date Time Temp Pulse Resp B/P Pulse Ox O2 Delivery O2 Flow Rate FiO2 06/07/16 13:38 96.3 18 16 156/84 100 96.3 06/07/16 11:13 Room Air Labs Labs Laboratory Tests Test 06/06/16 20:20 06/06/16 20:27 06/07/16 04:55 06/07/16 10:35 White Blood Count 7.7x10^3/uL (4.0-11.0) 6.6x10^3/uL (4.0-11.0) Red Blood Count 4.46x10^6/uL (4.30-5.70) 4.14x10^6/uL (4.30-5.70) Hemoglobin 13.3g/dL (13.0-17.5) 12.4g/dL (13.0-17.5) Hematocrit 41.2% (39.0-53.0) 37.6% (39.0-53.0) Mean Corpuscular Volume 92fL (79-100) 91fL (79-100) Mean Corpuscular Hemoglobin 30pg (25-35) 30pg (25-35) Mean Corpuscular Hemoglobin Concent 32g/dL (31-37) 33g/dL (31-37) Red Cell Distribution Width 14.9% (11.5-14.5) 14.5% (11.5-14.5) Platelet Count 190x10^3/uL (140-400) 167x10^3/uL (140-400) Neutrophils (%) (Auto) 69% (31-73) 54% (31-73) Lymphocytes (%) (Auto) 22% (24-48) 34% (24-48) Monocytes (%) (Auto) 8% (0-9) 8% (0-9) Eosinophils (%) (Auto) 1% (0-3) 2% (0-3) Basophils (%) (Auto) 1% (0-3) 1% (0-3) Neutrophils # (Auto) 5.3x10^3uL (1.8-7.7) 3.6x10^3uL (1.8-7.7) Lymphocytes # (Auto) 1.7x10^3/uL (1.0-4.8) 2.2x10^3/uL (1.0-4.8) Monocytes # (Auto) 0.6x10^3/uL (0.0-1.1) 0.6x10^3/uL (0.0-1.1) Eosinophils # (Auto) 0.1x10^3/uL (0.0-0.7) 0.1x10^3/uL (0.0-0.7) Basophils # (Auto) 0.0x10^3/uL (0.0-0.2) 0.1x10^3/uL (0.0-0.2) Prothrombin Time 28.1SEC (11.7-14.0) Prothromb Time International Ratio 2.8 (0.8-1.1) Activated Partial Thromboplast Time 40SEC (24-38) Sodium Level 144mmol/L (136-145) 144mmol/L (136-145) Potassium Level 3.6mmol/L (3.5-5.1) 4.0mmol/L (3.5-5.1) Chloride Level 108mmol/L (98-107) 111mmol/L (98-107) Carbon Dioxide Level 28mmol/L (21-32) 25mmol/L (21-32) Anion Gap 8 (6-14) 8 (6-14) Blood Urea Nitrogen 16mg/dL (8-26) 16mg/dL (8-26) Creatinine 1.6mg/dL (0.7-1.3) 1.5mg/dL (0.7-1.3) Estimated GFR (Cockcroft-Gault) 44.2 57.6 Glucose Level 89mg/dL (70-99) 110mg/dL (70-99) Calcium Level 9.1mg/dL (8.5-10.1) 8.3mg/dL (8.5-10.1) Total Bilirubin 0.5mg/dL (0.2-1.0) Direct Bilirubin 0.1mg/dL (0.0-0.2) Aspartate Amino Transf (AST/SGOT) 33U/L (15-37) Alanine Aminotransferase (ALT/SGPT) 64U/L (16-63) Alkaline Phosphatase 79U/L (46-116) Troponin I Quantitative < 0.017ng/mL (0.000-0.055) < 0.017ng/mL (0.000-0.055) < 0.017ng/mL (0.000-0.055) JF-Mps-Y-Type Natriuretic Peptide 254pg/mL (0-124) Total Protein 7.5g/dL (6.4-8.2) Albumin 3.6g/dL (3.4-5.0) Lipase 228U/L (73-393) Bedside Troponin I 0.00ng/ml (<0.08) Triglycerides Level 68mg/dL (0-150) Cholesterol Level 143mg/dL (0-200) LDL Cholesterol, Calculated 82mg/dL (0-100) VLDL Cholesterol, Calculated 14mg/dL (0-40) HDL Cholesterol 47mg/dL (40-60) Cholesterol/HDL Ratio 3.0 Thyroid Stimulating Hormone (TSH) 0.147uIU/mL (0.358-3.74) Laboratory Tests Test 06/06/16 20:20 06/06/16 20:27 06/07/16 04:55 06/07/16 10:35 White Blood Count 7.7x10^3/uL (4.0-11.0) 6.6x10^3/uL (4.0-11.0) Red Blood Count 4.46x10^6/uL (4.30-5.70) 4.14x10^6/uL (4.30-5.70) Hemoglobin 13.3g/dL (13.0-17.5) 12.4g/dL (13.0-17.5) Hematocrit 41.2% (39.0-53.0) 37.6% (39.0-53.0) Mean Corpuscular Volume 92fL (79-100) 91fL (79-100) Mean Corpuscular Hemoglobin 30pg (25-35) 30pg (25-35) Mean Corpuscular Hemoglobin Concent 32g/dL (31-37) 33g/dL (31-37) Red Cell Distribution Width 14.9% (11.5-14.5) 14.5% (11.5-14.5) Platelet Count 190x10^3/uL (140-400) 167x10^3/uL (140-400) Neutrophils (%) (Auto) 69% (31-73) 54% (31-73) Lymphocytes (%) (Auto) 22% (24-48) 34% (24-48) Monocytes (%) (Auto) 8% (0-9) 8% (0-9) Eosinophils (%) (Auto) 1% (0-3) 2% (0-3) Basophils (%) (Auto) 1% (0-3) 1% (0-3) Neutrophils # (Auto) 5.3x10^3uL (1.8-7.7) 3.6x10^3uL (1.8-7.7) Lymphocytes # (Auto) 1.7x10^3/uL (1.0-4.8) 2.2x10^3/uL (1.0-4.8) Monocytes # (Auto) 0.6x10^3/uL (0.0-1.1) 0.6x10^3/uL (0.0-1.1) Eosinophils # (Auto) 0.1x10^3/uL (0.0-0.7) 0.1x10^3/uL (0.0-0.7) Basophils # (Auto) 0.0x10^3/uL (0.0-0.2) 0.1x10^3/uL (0.0-0.2) Prothrombin Time 28.1SEC (11.7-14.0) Prothromb Time International Ratio 2.8 (0.8-1.1) Activated Partial Thromboplast Time 40SEC (24-38) Sodium Level 144mmol/L (136-145) 144mmol/L (136-145) Potassium Level 3.6mmol/L (3.5-5.1) 4.0mmol/L (3.5-5.1) Chloride Level 108mmol/L (98-107) 111mmol/L (98-107) Carbon Dioxide Level 28mmol/L (21-32) 25mmol/L (21-32) Anion Gap 8 (6-14) 8 (6-14) Blood Urea Nitrogen 16mg/dL (8-26) 16mg/dL (8-26) Creatinine 1.6mg/dL (0.7-1.3) 1.5mg/dL (0.7-1.3) Estimated GFR (Cockcroft-Gault) 44.2 57.6 Glucose Level 89mg/dL (70-99) 110mg/dL (70-99) Calcium Level 9.1mg/dL (8.5-10.1) 8.3mg/dL (8.5-10.1) Total Bilirubin 0.5mg/dL (0.2-1.0) Direct Bilirubin 0.1mg/dL (0.0-0.2) Aspartate Amino Transf (AST/SGOT) 33U/L (15-37) Alanine Aminotransferase (ALT/SGPT) 64U/L (16-63) Alkaline Phosphatase 79U/L (46-116) Troponin I Quantitative < 0.017ng/mL (0.000-0.055) < 0.017ng/mL (0.000-0.055) < 0.017ng/mL (0.000-0.055) OA-Buo-E-Type Natriuretic Peptide 254pg/mL (0-124) Total Protein 7.5g/dL (6.4-8.2) Albumin 3.6g/dL (3.4-5.0) Lipase 228U/L (73-393) Bedside Troponin I 0.00ng/ml (<0.08) Triglycerides Level 68mg/dL (0-150) Cholesterol Level 143mg/dL (0-200) LDL Cholesterol, Calculated 82mg/dL (0-100) VLDL Cholesterol, Calculated 14mg/dL (0-40) HDL Cholesterol 47mg/dL (40-60) Cholesterol/HDL Ratio 3.0 Thyroid Stimulating Hormone (TSH) 0.147uIU/mL (0.358-3.74) VTE Prophylaxis Ordered VTE Prophylaxis Devices: Yes VTE Pharmacological Prophylaxi: Yes Assessment/Plan Assessment/Plan 1. Chest pain at rest in an adult, etiology unable to determine - await MPI 2. Solitary kidney 3. CKD 4. DVT x 2 on chronic AC with therapeutic INR PLAN: MPI COnt coumadin IMAN ENGLE MD Jun 07, 2016 13:49
[2016-06-07 15:00] VITALS: BP 149/82
[2016-06-07] MEDS ORDERED: WARFARIN 7.5 MG TABLET. PO SCH (16:00)
--- NOTE | 2016-06-07 16:15 | RAD ---
APPROVED REPORT Test Type: Pharmacological Stress Nurse/Tech: THAO Rosa RN Test Indications: Chest pain Cardiac History: HTN, see EHR Medications: see EHR Medical History: DVT, see EHR Resting ECG: SR elevated II, AVF, V3-V6 Resting Heart Rate: 68 bpm Resting Blood Pressure: 141/88mmHg Pretest Chest Pain: No chest pain Nurse/Tech Notes Lungs CTA, heart tones WNL Consent: The procedure was explained to the patient in lay terms. Informed consent was witnessed. Devante eout was entered into [employer]. History and Stress Test performed by RT Salima (R) (N) Pharm. Details Pharmacologic stress testing was performed using 0.4mg per 5ml of regadenoson given intravenously ove r 7-10 seconds. Stress Symptoms No chest pain or symptoms. POST EXERCISE Reason for Termination: Infusion complete Max HR: 112 bpm 82% of Maximum Predicted HR: 135 bpm Max Blood Pressure: 140/77mmHg Chest Pain: No. Arrhythmia: No. ST Change: Yes. elevated II, AVF, V3-V6 Deviation: 1 mm INTERPRETATION Stress EKG Conclusion: Baseline EKG showed sinus rhythm. No ischemic changes at peak stress. No arr hythmias. Imaging Protocol IMAGE PROTOCOL: Rest Tc-99m/stress Tc-99m 1 day Rest: Stress: Viability: Radiopharm.Tc99m PfonanzxxHw34g Sestamibi [id number] 33mCi Duration 15min. 10min. Img Date 06/07/2016 06/07/2016 Inj-Img [id number]. 60min. Rest Admin Site:IV - Left AntecubitalAdministrator:GUNNAR Benavides, ARRT (R)(N) Stress Admin Site: IV - Left AntecubitalAdministrator: RT Jazmin BorregoR)(N) STRESS DATA End Diast. Vol.117.0mlAv. Heart Rate87.0bpm End Syst. Vol.27.0mlCO Index BSA0.0L/min Myocardial Zflc538.0gEject. Untsvwpx12.0% Stress Rates Pk. Fill Rate2.51EDV/secLVtime Pk. Fill 177.22msec Pk. Empty Rate3.80ESV/secLVtime Pk. Qixgl455.35msec 1/3 Pk. Fill1.47EDV/sec Stress Scores Regional WT0.00Summed WT1.00 Regional WM0.00Summed WM0.00 Study quality was good. Left Ventricular size was Normal at Rest and Stress. Lung uptake was Normal. Left Ventricular ejection fraction is 77%. The rest and stress images show normal perfusion, normal contraction and thickening. LV Perf. Quant 17 Seg. SSS0.00 17 Seg. SRS0.00 17 Seg. SDS0.00 Stress Defect Extent (% LAD)0.00Rest Defect Extent (% LAD)0.00Rev. Defect Extent (% LAD)0.00 Stress Defect Extent (% LCX) 0.00Rest Defect Extent (% LCX)0.00Rev. Defect Extent (% LCX)0.00 Stress Defect Extent (% RCA)0.00Rest Defect Extent (% RCA)0.00Rev. Defect Extent (% RCA)0.00 Stress Defect Extent (% SUKI)0.00Rest Defect Extent (% SUKI)0.00Rev. Defect Extent (% SUKI)0.00 Conclusion 1. Regadenoson cardioisotope stress test did not show any evidence of ischemia or infarct. 2. Normal left ventricular systolic function with ejection fraction calculated at 77%. 3. Low risk for cardiac events.
--- NOTE | 2016-06-07 16:48 | CARD ---
APPROVED REPORT EXAM: Two-dimensional and M-mode echocardiogram with Doppler and color Doppler. Other Information Quality : Good INDICATION Chest Pain 2D DIMENSIONS RVDd2.9 (2.9-3.5cm)Left Atrium(2D)3.1 (1.6-4.0cm) IVSd1.0 (0.7-1.1cm)Aortic Root(2D)2.7 (2.0-3.7cm) LVDd5.1 (3.9-5.9cm)LVOT Diameter2.1 (1.8-2.4cm) PWd1.0 (0.7-1.1cm)LVDs2.3 (2.5-4.0cm) FS (%) 30.0 %SV104.5 ml LVEF(%)60.0 (>50%) Aortic Valve AoV Peak Sandeep.152.4cm/sAoV VTI27.9cm AO Peak GR.9.3mmHgLVOT Peak Sandeep.140.6cm/s LVOT VTI 23.69cmAO Mean GR.5mmHg MERLYN (VMAX)3.08xu2SFK (VTI)2.87cm2 Mitral Valve MV E Zkbsesjs29.5cm/sMV DECEL [id number] MV A Pnuultam26.3cm/sMV IPD63sg E/A Ratio0.9MVA (PHT)3.39cm2 TDI E/Lateral E'5.4E/Medial E'6.9 Tricuspid Valve TR P. Muzxyiyd321sa/sRAP [id number] TR Peak Gr.[id number] Pulmonary Vein D2 Pqhqsyww73.2cm/sPVa [id number] LEFT VENTRICLE The left ventricle is normal size. There is normal left ventricular wall thickness. The left ventricu lar systolic function is normal. The Ejection Fraction is 55-60%. There is normal LV segmental wall m otion. RIGHT VENTRICLE The right ventricle is normal size. The right ventricular systolic function is normal. ATRIA The left atrium size is normal. The right atrium size is normal. The interatrial septum is intact wit h no evidence for an atrial septal defect or patent foramen ovale as noted on 2-D or Doppler imaging. AORTIC VALVE The aortic valve is mildly thickened but opens well. Doppler and Color Flow revealed trace aortic reg urgitation. There is no significant aortic valvular stenosis. MITRAL VALVE The mitral valve is calcified but opens well. There is no evidence of mitral valve prolapse. There is no mitral valve stenosis. Doppler and Color-flow revealed trace mitral regurgitation. TRICUSPID VALVE The tricuspid valve is normal in structure and function. Doppler and Color Flow revealed trace tricus pid regurgitation. The PA pressure was estimated at 26 mmHg. There is no tricuspid valve stenosis. PULMONIC VALVE The pulmonary valve is normal in structure and function. Doppler and Color Flow revealed no pulmonic valvular regurgitation. There is no pulmonic valvular stenosis. GREAT VESSELS The aortic root is normal in size. The ascending aorta is mildly dilated at 3.4 cm. The IVC is normal in size and collapses >50% with inspiration. PERICARDIAL EFFUSION There is no evidence of significant pericardial effusion. Critical Notification Critical Value: No <Conclusion> The left ventricular systolic function is normal. The Ejection Fraction is 55-60%. There is normal LV segmental wall motion. Trace aortic regurgitation. Trace mitral regurgitation. Trace tricuspid regurgitation. The PA pressure was estimated at 26 mmHg. There is no evidence of significant pericardial effusion.
[2016-06-07] MEDS ORDERED: NITR0.4T6 SL ×2 (20:02→20:04)
[2016-06-07] MEDS ORDERED: LATANOPROST 0.005% OPHTH SOLUTION 2.5ML BOTTLE. OU SCH (21:00)
[2016-06-07] MEDS ORDERED: TAMSULOSIN 0.4 MG CAP.ER.24H. PO SCH (21:00)
[2016-06-09] MEDS ORDERED: WARFARIN 7.5 MG TABLET. PO SCH (16:00)
[2016-06-11] MEDS ORDERED: WARFARIN 5 MG TABLET. PO SCH (16:00)
[2016-06-13] MEDS ORDERED: WARFARIN 7.5 MG TABLET. PO SCH (16:00)
== END 2016-06-07 20:20 | disposition home or self-care (01) ==
LOC: ER 19:51 → 5 NORTH 23:06
PROVIDERS: ADMIT Internal Medicine; ATTEND Internal Medicine
DX: R07.9 Chest pain, unspecified (principal); Q60.0 Renal agenesis, unilateral; I12.9 Hypertensive chronic kidney disease with stage 1 through stage 4 chronic kidney disease, or unspecified chronic kidney disease; N18.9 Chronic kidney disease, unspecified; K21.9 Gastro-esophageal reflux disease without esophagitis; M19.90 Unspecified osteoarthritis, unspecified site; H40.9 Unspecified glaucoma; H54.0 Blindness, both eyes; F20.9 Schizophrenia, unspecified; E03.9 Hypothyroidism, unspecified; Z87.891 Personal history of nicotine dependence; Z87.11 Personal history of peptic ulcer disease; Z86.718 Personal history of other venous thrombosis and embolism; Z85.528 Personal history of other malignant neoplasm of kidney; Z85.850 Personal history of malignant neoplasm of thyroid; Z79.01 Long term (current) use of anticoagulants; W19.XXXA Unspecified fall, initial encounter; Z23 Encounter for immunization
CPT/HCPCS: 36415; 71010; 78452; 80048; 80061; 80076; 83690; 83880; 84443; 84484; 85027; 85610; 85730; 90471; 90686; 93005; 93017; 93306; 94250; 94640; 96374; 99285; A9500; G0378; J2270; J2785; J7620; 96376; G0379